=== PATIENT | female | born 1960 | race Asian ===

== ENCOUNTER → 2022-03-03 | Outpatient (CLI) | payer OTHER ==
[~2022-03-03] MED LIST: ATEN-60 PO; SULF400T11 PO
[2022-03-03 08:29] LABS: Urine WBC None Seen /hpf (0 - 5)
[2022-03-03 08:32] LABS: Basophils # (auto) 0.1 10 ^3/uL (0-0.2); Basophils % (auto) 1.7 % (0.0-2.0); Eosinophils # (auto) 0.2 10 ^3/uL (0-0.8); Mean Corpuscular Hemoglobin 19.2 pg (28.0-32.0); Mean Corpuscular Hgb Conc. 30.5 g/dL (32.0-36.0); Monocytes # (auto) 0.3 10 ^3/uL (0-1.3); Neutrophils # (auto) 3.2 10 ^3/uL (1.6-8.6); Nucleated Red Blood Cells % 0.3 %; White Blood Cell 4.8 10^3/uL (4.4-10.8)
[2022-03-03 08:34] LABS: Eosinophils % (auto) 4.1 % (0.0-7.0); Lymphocytes % (auto) 20.6 % (10.0-50.0); Mean Corpuscular Volume 63.1 fL (80.0-100.0); Monocytes % (auto) 6.3 % (0.0-12.0); Neutrophils % (auto) 67.3 % (37.0-80.0); Red Blood Cells 5.72 10^6/uL (4.0-5.20); Red Cell Distribution Width 16.4 % (11.8-14.3)
[2022-03-03 08:42] LABS: Urine Bacteria NONE SEEN /hpf (None Seen); Urine Blood Negative /uL (Negative); Urine Specific Gravity 1.001 (1.001-1.035)
[2022-03-03 09:01] LABS: Albumin 3.6 g/dL (3.4-5.0); Calcium 8.5 mg/dL (8.5-10.1); Magnesium 1.9 mg/dL (1.6-2.6); Potassium 3.6 mmol/L (3.5-5.1)
[2022-03-03 09:08] LABS: Bilirubin, Total 0.9 mg/dL (0.2-1.0); Total Protein 7.4 g/dL (6.4-8.2); Uric Acid 4.7 mg/dL (2.6-6.0)
[2022-03-03 09:10] LABS: Free T4 (Free Thyroxine) 1.19 ng/dL (0.89-1.76)
== END | disposition home or self-care (01) ==
LOC: LAB 08:06
PROVIDERS: ATTEND Internal Medicine
DX: M54.31 Sciatica, right side (principal); I47.1 Supraventricular tachycardia; M77.50 Other enthesopathy of unspecified foot and ankle
CPT/HCPCS: 36415; 80053; 80061; 81001; 82607; 83735; 83970; 84439; 84443; 84550; 85025; 85652; 86038; 86431; 86787

== ENCOUNTER → 2022-03-11 | Outpatient (CLI) | payer OTHER | END | disposition home or self-care (01) | LOC: LAB 15:24 | PROVIDERS: ATTEND Internal Medicine | DX: M54.31 Sciatica, right side (principal); I47.1 Supraventricular tachycardia; M77.50 Other enthesopathy of unspecified foot and ankle | CPT/HCPCS: 82270 ==

== ENCOUNTER 2025-06-12 10:59 | Outpatient (CLI) | payer OTHER ==
[2025-06-12 11:26] LABS: Hemoglobin 11.7 g/dL (12.2-16.2); Nucleated Red Blood Cells % 0.1 %
[2025-06-12 11:27] LABS: Hematocrit 37.2 % (36.0-46.0); Mean Corpuscular Hemoglobin 20.0 pg (28.0-32.0); Mean Corpuscular Volume 63.9 fL (80.0-100.0)
[2025-06-12 11:35] LABS: Urine Protein, UAD Negative (Negative)
[2025-06-12 11:55] LABS: Alanine Aminotransferase 27 U/L (7-40); Alkaline Phosphatase 93 U/L (46-116); Calcium 9.3 mg/dL (8.7-10.4); Chloride 103 mmol/L (98-107); Triglycerides 53 mg/dL (< 150)
[2025-06-12 11:56] LABS: Albumin 4.2 g/dL (3.2-4.8); Anion Gap 8 (5-15); BUN/Creatinine Ratio 16.9 (10.0-20.0); Bilirubin, Total 1.6 mg/dL (0.2-1.0); Blood Urea Nitrogen 10 mg/dL (9-23); Carbon Dioxide 27 mmol/L (20-31); Cholesterol 158 mg/dL (< 200); Glucose 97 mg/dL (74-106); HDL Cholesterol 86 mg/dL (40-59); Potassium 3.6 mmol/L (3.5-5.1); Sodium 138 mmol/L (136-145); Total Protein 7.4 g/dL (5.7-8.2)
== END 2025-06-12 17:00 | disposition home or self-care (01) ==
LOC: LAB 10:59
PROVIDERS: ATTEND Internal Medicine
DX: I47.19 Other supraventricular tachycardia (principal); Z79.899 Other long term (current) drug therapy
CPT/HCPCS: 36415; 80053; 80061; 81001; 84439; 84443; 85025; 85652

== ENCOUNTER 2025-06-12 12:22 | Outpatient (CLI) | payer OTHER | END 2025-06-12 17:00 | disposition home or self-care (01) | LOC: LAB 12:22 | PROVIDERS: ATTEND Internal Medicine | DX: I47.10 Supraventricular tachycardia, unspecified (principal) | CPT/HCPCS: 82270 ==